=== PATIENT | male | born 2000 | race Caucasian/White ===

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

== ENCOUNTER 2023-07-07 11:53 | Emergency (ER) | payer BC, SELFPAY ==
--- NOTE | 2023-07-07 12:09 | ED.URI ---
HPI - URI/Sore Throat General Chief Complaint: Upper Respiratory Infection Stated Complaint: Sore throat;Chest pain Time Seen by Provider: 07/07/23 12:43 Source: patient, RN notes reviewed and old records reviewed Mode of arrival: ambulatory Limitations: no limitations History of Present Illness HPI Narrative: 23-year-old male presents to the [facility] with complaints of a sore throat that started Tuesday, 3 days. Reports intermittent 2nd chest sharpness started Tuesday afternoon. Denies any other symptoms associated with that. Denies diaphoresis, shortness of breath, nausea, vomiting. Denies any chest pain currently Related Data Home Medications Medication Instructions Recorded Confirmed No Home Medications 07/07/23 07/07/23 Allergies Allergy/AdvReac Type Severity Reaction Status Date / Time No Known Allergies Allergy Verified 07/07/23 12:23 Review of Systems Review of Systems: All systems reviewed & are unremarkable except as noted in HPI and below Constitutional: Constitutional: Reports no additional constitutional complaints Eyes: Eyes: Reports no additional eye complaints ENT: Reports system reviewed and no additional complaints, except as documented Cardiovascular: Cardiovascular: Reports no additional cardiovascular complaints, Denies chest pain and Denies dyspnea Respiratory: Respiratory: Reports no additional respiratory complaints, Denies chest congestion, Denies cough and Denies dyspnea Gastrointestinal: Gastrointestinal: Reports no additional gastrointestinal complaints, Denies abdominal pain, Denies nausea and Denies vomiting Musculoskeletal: Musculoskeletal: Reports no additional musculoskeletal complaints Integumentary/Breasts: Skin/Breast: Reports system reviewed and no additional complaints, except as docu Neurologic: Reports system reviewed and no additional complaints, except as documented Psychiatric: Psychiatric: Reports no additional psychiatric complaints Allergic/Immunologic: Allergic/Immunologic: Reports no additional allergic/immunologic complaints PMFSH Social History Social History Smoking status: Current every day smoker Comments At the time of my signature, I reviewed and agree with the nursing past medical, surgical, social, and family history. There is no relevant family history pertinent to the patient complaint. Exam Const: General: cooperative, healthy appearing, comfortable, no acute distress, well developed, alert and well nourished Nutritional Appearance: well nourished and overweight Orientation/consciousness: patient oriented x3 Limitations: no limitations HENMT: Head: normal to inspection Ears: hearing grossly normal bilaterally and external ears normal Face/Nose/Sinus: Normal external nose present, Normal nares present, Normal nasal mucous membranes and turbinates present, normal facial exam and face symmetric Face and sinus: normal facial exam and face symmetric Mouth: Yes Normal oral and palatal mucosa present, Yes lip normal and Yes moist mucous membranes Throat: posterior oropharynx normal and uvula midline Eyes: General: appearance normal, both eyes and all related structures Alignment and Position: alignment normal Periorbital: periorbital findings normal Pupils: Equal, round and reactive pupils present EOM: EOMs intact bilaterally Neck: Neck: normal visual inspection, full ROM, no lymphadenopathy and no meningeal signs Chest: Chest palpation & inspection: normal inspection of the chest Resp: Effort & Inspection: normal respiratory effort and able to speak in complete sentences Auscultation: clear to auscultation bilaterally, no crackles, no rales, no rhonchi and no wheezes Cardio: Rate: regular rate Rhythm: regular rhythm Back/Spine/Pelvis: Cervical Spine: cervical ROM normal Skin: General skin exam: normal color and no rashes or lesions noted Lesions: no lesions Rashes: no rashes
[2023-07-07 12:19] VITALS: BP 141/73; PULSE 67; RESP 16; TEMP 36.5; O2SAT 100
== END 2023-07-07 12:58 | disposition home or self-care (01) ==
PROVIDERS: Emergency Provider Nurse Practitioner
DX: J02.9 Acute pharyngitis, unspecified (principal); J06.9 Acute upper respiratory infection, unspecified
CPT/HCPCS: 87081; 87880; 99213; G0463

== ENCOUNTER 2023-09-07 21:48 | Emergency (ER) | payer BC, SELFPAY ==
--- NOTE | ~2023-09-07 | XR_ITS ---
EXAMINATION: XR wrist LT min 3V DATE: 09/07/2023 22:04 INDICATION: Left wrist injury post fall TECHNIQUE: Posteroanterior, ulnar deviation, oblique, and lateral views of the left wrist were obtain ed. COMPARISON: none FINDINGS: Alignment is normal. No fracture. Joint spaces are normal. Soft tissues are unremarkable. IMPRESSION: 1. Negative left wrist radiographs. Reviewed, dictated and finalized at location A. ICE ARCHITECT
[2023-09-07 21:53] VITALS: BP 156/90; PULSE 87; RESP 17; TEMP 37; O2SAT 100
--- NOTE | 2023-09-07 23:35 | ED.UPPEXIN ---
HPI - Extremity Injury (Upper) General Chief Complaint: Extremity Injury, Upper Stated Complaint: left wrist injury Time Seen by Provider: 09/07/23 22:47 Source: patient Mode of arrival: ambulatory Limitations: no limitations History of Present Illness HPI narrative: this is a 23-year-old male that presents to the emergency department for left wrist injury. Sustained about a week ago. Reports slipping on ice. He did not hit his head or lose consciousness. Reports bearing weight on it again tonight which worsened his pain. He has not been evaluated for this. Denies swelling, decreased range of motion or numbness Related Data Home Medications Medication Instructions Recorded Confirmed No Home Medications 07/07/23 07/07/23 Allergies Allergy/AdvReac Type Severity Reaction Status Date / Time No Known Allergies Allergy Verified 07/07/23 12:23 Review of Systems Review of Systems: CONSTITUTIONAL: Denies fever MUSCULOSKELETAL: Reports joint pain, and myalgia. NEUROLOGIC: Denies numbness, or weakness. All systems reviewed & are unremarkable except as noted in HPI and below PMFSH Past Medical History Medical History (Updated 09/07/23 @ 23:53 by Silvana Bailey PA-C) No active medical problems Social History Social History Smoking status: Current every day smoker Exam Narrative: GENERAL: Well-appearing, well-nourished, and in no acute distress. HEAD: Normocephalic, atraumatic. EYES: EOMI. CHEST: No respiratory distress. HEART: Regular rate EXTREMITIES: Normal range of motion. No edema or obvious deformity. Normal radial pulse. Normal sensation SKIN: Warm, dry, no rash. NEURO: No focal deficits. Alert and oriented x3. PSYCH: Normal mood and affect Course Course Emergency Course: Patient updated on workup and agrees with plan of care Vital Signs Vital signs: Vital Signs Temperature 98.6 F 09/07/23 21:53 Pulse Rate 87 09/07/23 21:53 Respiratory Rate 09/07/23 21:53 Blood Pressure 156/90 H 09/07/23 21:53 Pulse Oximetry 100 09/07/23 21:53 Oxygen Delivery Room Air 09/07/23 21:53 Temperature 98.6 F 09/07/23 21:53 Pulse Rate 87 09/07/23 21:53 Respiratory Rate 17 09/07/23 21:53 Blood Pressure 156/90 H 09/07/23 21:53 Pulse Oximetry 100 09/07/23 21:53 Oxygen Delivery Room Air 09/07/23 21:53 Procedures Orthopedic Splinting/Casting Injury #1: Splinting/Casting Date: 09/07/23 Splinting/Casting Time: 23:57 Side: left Upper Extremity Injury Location: wrist Upper Extremity Immobilizer: Moisés wrap Pre-Procedure Neuro Vascular Exam: normal Post-Procedure Neuro Vascular Exam: normal MDM - Extremity Injury (Upper) MDM Narrative Medical decision making narrative: Patient presents to the emergency department for pain after a left wrist injury about a week ago. Patient is neurovascularly intact. Left wrist x-rays without acute osseous abnormalities. Patient was updated on workup. Instructed on care of wrist sprain. Placed in an Moisés wrap. He is to follow up with his primary provider. He was given warnings to return to the ER Differential Diagnosis Differential diagnosis: Likely sprain and strain of wrist and fracture of wrist Imaging Data Radiologist's impression: ITS Impressions Wrist X-Ray 09/07/23 22:04 IMPRESSION: 1. Negative left wrist radiographs. Critical Care Time Critical Care Time Critical Care Time: No Discharge Plan Discharge Clinical Impression: Left wrist sprain Qualifiers: Encounter type: initial encounter Qualified Code(s): S63.502A - Unspecified sprain of left wrist, initial encounter Patient Disposition: Home, Self-Care Condition: Stable Instructions: Wrist Sprain (ED) Additional Instructions: Return to the ER if you experience fever, redness and swelling of your extremity, numbness or any
[2023-09-07 23:56] VITALS: BP 126/68; PULSE 66; RESP 15; TEMP 36.6; O2SAT 99
== END 2023-09-07 23:57 | disposition home or self-care (01) ==
PROVIDERS: Emergency Provider Physician Assistant
DX: S63.502A Unspecified sprain of left wrist, initial encounter (principal); W00.0XXA Fall on same level due to ice and snow, initial encounter
CPT/HCPCS: 73110; 99283

== ENCOUNTER 2023-10-07 13:08 | Emergency (ER) | payer BC, SELFPAY ==
[2023-10-07 13:19] VITALS: BP 144/78; PULSE 96; RESP 16; TEMP 36.6; O2SAT 100
--- NOTE | 2023-10-07 13:21 | ED.DENTAL ---
HPI - Dental/Oral General Chief complaint: Dental/Oral Stated complaint: JAW SWELLING Time Seen by Provider: 10/07/23 13:21 Source: patient and RN notes reviewed Mode of arrival: ambulatory Limitations: no limitations History of Present Illness HPI Narrative: 23-year-old male presents [facility] with complaint right jaw pain with acute onset while eating lunch just prior to arrival. patient endorses that he was eating a salad when he noticed right jaw discomfort and submandibular swelling on right side. patient denies pain upon arrival while sitting exam room. 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 patient denies pertinent pa st medical history and endorses that he was last seen by his dentist 3 weeks ago. Patient endorses having had his wisdom teeth removed several years ago. Patient denies dental caries or any other dental complaints. Patient able to tolerate fluids by mouth. Related Data Home Medications Medication Instructions Recorded Confirmed No Home Medications 07/07/23 07/07/23 Allergies Allergy/AdvReac Type Severity Reaction Status Date / Time No Known Allergies Allergy Verified 07/07/23 12:23 Review of Systems Review of Systems: All systems reviewed & are unremarkable except as noted in HPI and below Constitutional: Constitutional: Reports no additional constitutional complaints Eyes: Eyes: Reports no additional eye complaints ENT: Denies headache(s), Denies nasal congestion, Denies sore throat and Reports other ( right mandibular pain with chewing; acute submandibular swelling) Cardiovascular: Cardiovascular: Reports no additional cardiovascular complaints, Denies chest pain and Denies dyspnea Respiratory: Respiratory: Reports no additional respiratory complaints, Denies cough and Denies dyspnea Musculoskeletal: Musculoskeletal: Reports no additional musculoskeletal complaints Neurologic: Reports system reviewed and no additional complaints, except as documented Psychiatric: Psychiatric: Reports no additional psychiatric complaints PMFSH Past Medical History Medical History (Updated 10/07/23 @ 13:39 by Mireal Okeefe APRN) No active medical problems Social History Social History Smoking status: Current every day smoker Comments At the time of my signature, I reviewed and agree with the nursing past medical, surgical, social, and family history. There is no relevant family history pertinent to the patient complaint. Exam Const: General: cooperative, healthy appearing, comfortable, no acute distress, alert and well nourished Nutritional Appearance: well nourished Orientation/consciousness: patient oriented x3 Limitations: no limitations HENMT: Head: normal to inspection Ears: external ears normal and TM's normal bilaterally Face/Nose/Sinus: Normal external nose present, Normal nares present, normal facial exam, No erythema and No edema Face and sinus: normal facial exam, no erythema and edema on the right submandibular ( pain with palpation) Mouth: Yes Normal oral and palatal mucosa present Teeth and gingiva: dentition normal and gingiva normal Throat: posterior oropharynx normal, tonsils normal, uvula midline, no peritonsillar masses and no uvular edema Eyes: General: appearance normal, both eyes and all related structures Neck: Neck: normal visual inspection, full ROM and no meningeal signs Lymphatic: lymphadenopathy right submandibular single and tender Chest: Chest palpation & inspection: normal inspection of the chest Resp: Effort & Inspection: normal respiratory effort and able to speak in complete sentences Auscultation: clear to auscultation bilaterally Cardio: Jugular venous distension: no JVD Rate: regular rate Rhythm: regular rhythm Back/Spine/Pelvis: Cervical Spine: cervical ROM normal Skin: General skin exam: normal color, no rashes or lesions noted and turgor normal Neuro: General: patie
== END 2023-10-07 13:50 | disposition home or self-care (01) ==
PROVIDERS: Emergency Provider Nurse Practitioner Family
DX: R59.0 Localized enlarged lymph nodes (principal); F17.200 Nicotine dependence, unspecified, uncomplicated
CPT/HCPCS: 99211; G0463

== ENCOUNTER 2023-11-28 19:06 | Emergency (ER) | payer BC, SELFPAY ==
[2023-11-28 19:35] VITALS: BP 138/79; PULSE 68; RESP 18; TEMP 36.8; O2SAT 99
--- NOTE | 2023-11-28 20:15 | ED.EXTPRO ---
HPI - Extremity Problem General Chief complaint: Extremity Problem,Nontraumatic Stated complaint: Right Toe Ingrown Toenail Time Seen by Provider: 11/28/23 20:11 Source: patient and RN notes reviewed Mode of arrival: ambulatory Limitations: no limitations History of Present Illness HPI Narrative: Patient presents today complaining of a 2 week history of pain to the right 1st toenail fold. Currently rates his pain 2/10. Believes he may have an ingrown toenail. Related Data Allergies Allergy/AdvReac Type Severity Reaction Status Date / Time No Known Allergies Allergy Verified 11/28/23 19:36 Review of Systems Review of Systems: CONSTITUTIONAL: Denies body aches, fever, chills, or sweats. EYES: Denies visual changes, redness, or discharge. ENT: Denies rhinorrhea, congestion, sore throat, or otalgia. CARDIOVASCULAR: Denies chest pain, palpitations, or edema. RESPIRATORY: Denies cough or dyspnea. GASTROINTESTINAL: Denies abdominal pain, nausea, vomiting, or diarrhea. GENITOURINARY: Denies dysuria or hematuria. SKIN: Denies rash, itching, or wounds. MUSCULOSKELETAL: Pain and redness to right 1st toe. NEUROLOGIC: Denies headache, numbness, tingling, or weakness. PSYCH: Denies depression or anxiety. [facility] Past Medical History Medical History No active medical problems Social History Social History Smoking status: Current every day smoker Comments At time of signature, I have reviewed and agree with nursing past medical, surgical, social and family history unless otherwise noted. Please see nursing chart for further information. There is no relevant family history pertinent to the presenting complaint Exam Narrative: GENERAL: Well-appearing, well-nourished, and in no acute distress. HEAD: Normocephalic, atraumatic. EYES: EOMI. No redness or drainage. Conjunctivae normal. ENT: Mucous membranes pink and moist. NECK: Normal AROM. CHEST: No respiratory distress. EXTREMITIES: Right 1st toe: Mild erythema and edema to the lateral toenail fold. No drainage noted. No subungual abscess or hematoma noted. Mildly tender to palpation. Distal sensation intact. Capillary refill normal. SKIN: Warm, dry, no rash. Capillary refill normal. Normal skin turgor. NEURO: No focal deficits. Alert and oriented x3. Gait steady. PSYCH: Normal affect. No signs of depression or anxiety. Course Course Level of Care: Express Care Visit Vital Signs Vital signs: Vital Signs Temperature 98.3 F 11/28/23 19:35 Pulse Rate 68 11/28/23 19:35 Respiratory Rate 18 11/28/23 19:35 Blood Pressure 138/79 11/28/23 19:35 Pulse Oximetry 99 11/28/23 19:35 Oxygen Delivery Room Air 11/28/23 19:35 Temperature 98.3 F 11/28/23 19:35 Pulse Rate 68 11/28/23 19:35 Respiratory Rate 18 11/28/23 19:35 Blood Pressure 138/79 11/28/23 19:35 Pulse Oximetry 99 11/28/23 19:35 Oxygen Delivery Room Air 11/28/23 19:35 Reviewed MDM - Extremity (Nontraumatic) MDM Narrative Medical decision making narrative: Patient's symptoms are likely due to an ingrown toenail. At this time and does not seem infected, however, will treat patient with course of antibiotics. 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 Anticipatory guidance given. Differential Diagnosis Differential diagnosis: Likely cellulitis and other (Ingrown toenail, subungual abscess, paronychia) Critical Care Time Critical Care Time Critical Care Time: No Discharge Plan Discharge Clinical Impression: Ingrowing toenail of right foot Patient Disposition: Home, Self-Care Condition: Stable Instructions: Ingrown Nail (ED) Additional Instructions: Please take the Keflex as prescribed. Schedule appointment with your hydraulic elevator constructor for further treatment. Take Tylenol or ibuprofen if needed for pain.
== END 2023-11-28 20:21 | disposition home or self-care (01) ==
PROVIDERS: Emergency Provider Nurse Practitioner
DX: L60.0 Ingrowing nail (principal); F17.200 Nicotine dependence, unspecified, uncomplicated
CPT/HCPCS: 99213; G0463